=== PATIENT | female | born 1985 | race Caucasian/White ===

== ENCOUNTER → 2021-02-11 | Outpatient (CLI) | payer BC ==
[~2021-02-11] MED LIST: AMOX500 PO; Cyclobenzaprine5 MG PO; HYDACE5 PO; LORA10ER PO; MULVITMINE PO; NAPR550 PO; NEOPOLDEXS OD; Naprosyn375 MG PO; OXYACE5T PO; RXNAPNA550 PO; Veetids 500500 MG PO
[2021-02-12 16:10] LABS: HPV 16 Negative (Negative); HPV 18 Negative (Negative); HPV OTHER HR TYPES Negative (Negative)
== END | disposition home or self-care (01) ==
LOC: LAB 16:42 → LAB SHORT 16:42
PROVIDERS: Obstetrics & Gynecology
DX: Z12.4 Encounter for screening for malignant neoplasm of cervix (principal)
CPT/HCPCS: 87624; G0123

== ENCOUNTER 2025-04-26 07:03 | Day surgery (SDC) | payer BC ==
[2025-04-26] VITALS (19 sets, daily range): BP systolic 86–122; BP diastolic 55–80
[~2025-04-26] VITALS: Ht 170.2 cm; Wt 76.5 kg
[~2025-04-26 07:03] MED LIST changes: +ALBU90OI INH; +ALDACTONE100 MG PO; +Aspir 8181 MG PO; +BENADRYL25 MG PO; +Diethylpropion25 MG PO
[2025-04-26] MEDS ORDERED: CeFAZolin Sodium 2,000 MG in NS 100 ML IV SCH (07:35)
--- NOTE | 2025-04-26 08:00 | NUR ---
Ambulatory in Day Surgery. Pre-Op teaching done. Pt verbalizes understanding. Patient confirms NPO status and agrees with scheduled surgery. History, Chart, Medications and Allergies reviewed before start of procedure. Patient States Post-Procedure ride home has been arranged.
[2025-04-26] MEDS ORDERED: Metoclopramide HCl 5MG / ML 2ML Vial IV PRN (08:05)
[2025-04-26] MEDS ORDERED: Ondansetron HCl 2 MG / ML 2ML Vial IV PRN ×2 (08:05→10:45)
[2025-04-26] MEDS ORDERED: ePHEDrine Sulfate 50 MG/ML 1ML Injection IV PRN (08:05)
[2025-04-26] MEDS ORDERED: Albuterol 2.5 MG/3 ML VIAL INH PRN (08:05)
[2025-04-26] MEDS ORDERED: HYDROmorphone HCl/Pf 1MG SYR IV PRN ×2 (08:05)
[2025-04-26] MEDS ORDERED: FentaNYL Citrate 50 MCG/ML 2 ML Injection IV PRN ×2 (08:10→10:50)
[2025-04-26] MEDS ORDERED: HydrALAZINE HCl 20 MG / ML 1ML Vial IV PRN (08:10)
[2025-04-26] MEDS ORDERED: FentaNYL Citrate 50 MCG/ML 2 ML Injection ONE (08:14)
[2025-04-26] MEDS ORDERED: Sugammadex Sodium 200 MG/2ML SDV (100 MG/ML) ONE (08:15)
[2025-04-26] MEDS ORDERED: Dexamethasone Sod Phos 10 MG/ML 1ML VIAL ONE (08:15)
[2025-04-26] MEDS ORDERED: Ondansetron HCl 2 MG / ML 2ML Vial ONE (08:15)
[2025-04-26] MEDS ORDERED: Midazolam HCl 1MG / ML 2ML Vial ONE (08:15)
[2025-04-26] MEDS ORDERED: Ketorolac Tromethamine 30mg Vial IV PRN (08:15)
[2025-04-26] MEDS ORDERED: Bupivacaine 0.5% W/EPI 1:200000 SDV 30 ML Vial ONE (08:54)
[2025-04-26] MEDS ORDERED: ePHEDrine Sulfate 50 MG/ML 1ML Injection ONE (09:44)
[2025-04-26] MEDS ORDERED: Ketorolac Tromethamine 30mg Vial ONE ×2 (10:01→11:11)
[2025-04-26] MEDS ORDERED: HYDROcodone 5-APAP 325 TAB PO PRN (10:50)
[2025-04-26] MEDS ORDERED: FLU VACC TS2025-26(6MOS UP)/PF 45 MCG/0.5 ML SYRINGE IM SCH (10:50)
[2025-04-26] MEDS ORDERED: Ketorolac Tromethamine 30mg Vial IV SCH (12:00)
--- NOTE | 2025-04-26 12:19 | NUR ---
PT ARRIVED TO SURGICAL FLOOR POST OP LAPRASCOPIC VAG HYSTER. A&0 X4. ROOM AIR. LUNG SOUNDS CLEAR, PERIPHERAL PULSES STRONG IN ALL 4 EXTREMITIES. LACTATED RINGERS INFUSING AT TKO. RATING PAIN 3/10. TOLERATING ICE CHIPS AND SALTINES. TWO INCISIONS SITES ON ABD WITH DERMABOND. SITES SHOW NO SIGNS OF DRAINAGE. CHAVES IN PLACE, DRAINING YELLOW CLOUDY URINE TO GRAVITY. EDUCATED TO CALL FOR ASSISTANCE, CALL LIGHT IN PLACE. PT'S BOYFRIEND RADHA IS AT BEDSIDE, HE WILL BE HER RIDE HOME.
[2025-04-26 13:41] LABS: BASOPHILS ABSOLUTE AUTO 0.03 K/mm3 (0.00-0.23); BASOPHILS PERCENT AUTO 0 % (0-2); EOSINOPHILS ABSOLUTE AUTO 0.01 K/mm3 (0.00-0.68); EOSINOPHILS PERCENT AUTO 0 % (0-6); Hematocrit 36.9 % (33.0-51.0); Hemoglobin 12.5 g/dL (11.5-16.0); IMMATURE GRAN ABSOLUTE AUTO 0.06 K/mm3 (0.00-0.10); IMMATURE GRAN PERCENT AUTO 0 % (0-1); LYMPHOCYTES ABSOLUTE AUTO 0.80 K/mm3 (0.84-5.20); LYMPHOCYTES PERCENT AUTO 5 % (21-46); MONOCYTES ABSOLUTE AUTO 0.21 K/mm3 (0.16-1.47); MONOCYTES PERCENT AUTO 1 % (4-13); Mean Corpuscular HGB Conc 33.9 g/dL (31.5-36.5); Mean Corpuscular Volume 93 fL (80-100); NEUTROPHILS ABSOLUTE AUTO 14.11 K/mm3 (1.96-9.15); NEUTROPHILS PERCENT AUTO 93 % (41-73); NRBC ABSOLUTE 0.00 K/mm3 (0.00-0.02); NRBC Auto 0.0 /100 WBC (0.0-0.2); Platelet Count 301 K/mm3 (150-400); RDW Coefficient Variation 11.6 % (11.7-14.2); RDW Standard Deviation 39.5 fL (35.1-46.3)
[2025-04-26] MEDS ORDERED: HYDR1TAB94 PO (17:49)
[2025-04-26] MEDS ORDERED: IBUP800 PO (17:49)
--- NOTE | 2025-04-26 19:10 | NUR ---
DISCHARGE NOTE: LATE ENTRY: AT 1838, PT DISCHARGED TO CARE OF HER SPOUSE AND PRIVATE VEHICLE. ALL PERSONAL BELONGINGS RETURNED. IV REMOVED BY RN. DISCHARGE TEACHING INCLUDED HOME CARE INSTRUCTIONS, APPTS TO KEEP, AND MEDICATIONS COMPLETED BY RN. PT VERBALIZED UNDERSTANDING. IV REMOVED BY RN. HARD SCRIPT GIVEN TO PT'S , WITH PT'S PERMISSION. PT TOLERATED DISCHARGE PROCEDURE WELL.
== END 2025-04-26 18:37 | disposition home or self-care (01) ==
LOC: ORSCMMR 07:03 → ORD 08:30 → SURS 11:55 → ORSCMMR 18:37
PROVIDERS: Obstetrics & Gynecology
DX: N92.0 Excessive and frequent menstruation with regular cycle (principal); D25.9 Leiomyoma of uterus, unspecified; R10.23 Pelvic and perineal pain bilateral; J45.909 Unspecified asthma, uncomplicated; F43.10 Post-traumatic stress disorder, unspecified; F32.A Depression, unspecified; Z79.899 Other long term (current) drug therapy; Z79.82 Long term (current) use of aspirin; F17.290 Nicotine dependence, other tobacco product, uncomplicated
CPT/HCPCS: 36415; 85025; 88307; A9270; J0690; J1100; J1885; J2250; J2405; J2704; J3010; J7120